=== PATIENT | female | born 1975 | race Caucasian/White ===

== ENCOUNTER 2020-03-05 17:30 | Emergency (ER) | payer OTHER, SELFPAY ==
--- NOTE | 2020-03-05 17:35 | DI.RAD.S_ITS ---
PROCEDURE: XR KNEE LT 3V INDICATIONS: fall w/ twist, lt medial knee pain TECHNIQUE: 3 views of the knee were acquired. COMPARISON: None. FINDINGS: Bones: No fractures or dislocations. No suspicious bony lesions. Soft tissues: No joint effusion. No suspicious soft tissue calcifications. IMPRESSION: No trauma. Dictated by: Jose Hines M.D. on 03/05/2020 at 18:35 Approved by: Jose Hines M.D. on 03/05/2020 at 18:36
[2020-03-05 17:36] VITALS: BP 136/75; PULSE 79; RESP 18; TEMP 36.6; O2SAT 98
--- NOTE | 2020-03-05 18:00 | ED_ITS ---
HPI - Extremity Injury (Lower) <Jhony CumminsBautistaToreyCHRISTINA ortizP - Last Filed: 03/05/20 19:16> General Chief Complaint: Extremity Injury, Lower Stated Complaint: fell on beach/hurt left knee Time Seen by Provider: 03/05/20 17:40 Source: patient Mode of arrival: Ambulatory Limitations: no limitations History of Present Illness HPI Narrative: This is a 44 year female, nonsmoker, who has noncontributing medical history presents to ED with significant other with chief complain of left your knee discomfort and instability. Patient reports she was jumping off dingy and landed on the beach with her knee shifted to medially. She did not feel the pain immediately but when she tried to walk she almost passed out from weird sensation and not from pain. Patient reports had injured knee about 10 years ago from skiing but not sure whether it was the same left knee. Patient had taken ibuprofen 800 mg immediately after the injury and has been using ice pack on affected knee. She reports intact sensation and is able to move toes distally. She states she is able to flex and extend affected leg. Primary care physician at [place]. Review of Systems <Jhony NaifCHRISTINA ortizP - Last Filed: 03/05/20 19:16> Review of Systems Narrative: General: Denies fever, chills, fatigue, malaise, sweats. Respiratory: Denies dyspnea, cough, wheezing, hemoptysis, sputum. Cardiovascular: Denies chest pain, palpitations, orthopnea, edema. Gastrointestinal: Denies nausea, vomiting, abdominal pain, diarrhea, constipation, melena. Musculoskeletal: See HPI Skin: Denies rash, skin lesions, or other. Exam <Jhony CumminsCHRISTINA ArroyoP - Last Filed: 03/05/20 19:16> Narrative Exam Narrative: General appearance: well developed, well nourished, in no acute distress. Head: normocephalic, atraumatic, no scalp lesions, non-tender. ENT: Hearing grossly intact. Nose without bleeding, purulent discharge. Airway patent. Neck/Thyroid: neck supple, full range of motion, no visible masses or meningeal signs. No JVD, non-tender without lymphadenopathy. Skin: no suspicious rashes, lesions over visible areas. Warm and dry and appropriate color for ethnicity. Heart: no clubbing, no cyanosis, no edema. Lungs: Breathing even and unlabored. No stridor. No accessory muscles used. Able to speak in full sentences. Chest: normal shape and expansion. Abdomen: non-obese, non-distended. Neurologic: alert and oriented. 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 Psych: good eye contact, normal affect. Initial Vital Signs Initial Vital Signs: Vital Signs Temperature 97.9 F 03/05/20 17:36 Pulse Rate 79 03/05/20 17:36 Respiratory Rate 18 03/05/20 17:36 Blood Pressure 136/75 03/05/20 17:36 Pulse Oximetry 98 03/05/20 17:36 Extrem Left lower extremity: normal to inspection, knee Details: normal to inspection, tenderness Location: of the medial joint line, normal ROM and knee ligament exam abnormal Details: valgus stress test and varus stress test; no pain with axial loading and Wicho's test not performed; no swelling, no lacerations, no ecchymosis, no crepitus, no deformity and no unusual warmth, lower leg Details: normal to inspection; no tenderness and no localized swelling, ankle Details: normal to inspection; no tenderness and no swelling and foot Details: normal to inspection; no tenderness <Kenton Jimenez DO - Last Filed: 03/05/20 21:34> Initial Vital Signs Initial Vital Signs: Vital Signs Temperature 97.9 F 03/05/20 17:36 Pulse Rate 79 03/05/20 17:36 Respiratory Rate 18 03/05/20 17:36 Blood Pressure 136/75 03/05/20 17:36 Pulse Oximetry 98 03/05/20 17:36 Procedures <LAKESHIA Herrera - Last Filed: 03/05/20 19:16> Orthopedic Splinting/Casting Injury #1: Side: left Lower Extremity Injury Location: knee Lower Extremity Immobilizer: Eric wrap Post splinting neuro exam: intact Post splinting vascular exam: intact Placed by: Nursing Scores <LAKESHIA Herrera Last Filed: 03/05/20 19:16> GCS [place] coma scale eye opening: Spontaneous [place] coma scale verbal response: Orientated Aida coma scale motor response: Obey commands Aida coma scale total score: 15 Course <LAKESHIA Herrera - Last Filed: 03/05/20 19:16> Orders Ordered: ED Orders 03/05/20 17:35 XR knee LT 3V Stat Vital Signs Vital signs: Vital Signs - 8 hr 03/05/20 17:36 Temperature 97.9 F Pulse Rate 79 Respiratory Rate 18 Blood Pressure 136/75 Pulse Oximetry 98 <Kenton Jimenez DO - Last Filed: 03/05/20 21:34> Orders Ordered: ED Orders 03/05/20 17:35 XR knee LT 3V Stat Vital Signs Vital signs: Vital Signs - 8 hr 03/05/20 17:36 Temperature 97.9 F Pulse Rate 79 Respiratory Rate 18 Blood Pressure 136/75 Pulse Oximetry 98 MDM - Extremity Injury (Lower) <LAKESHIA Herrera - Last Filed: 03/05/20 19:16> Differential Diagnosis Differential diagnosis: Likely acute internal derangement of knee and other (knee fracture, knee strain) Medical Records Attestation: I reviewed the patient's medical records. Imaging Data XR-Knee LT: Radiologist's Impression: [address] [address] XRay Report Signed Patient: Ruth Ann Borges EMR#: [id number] : 1975Acct:[id number] Age/Sex: 44 / FDate of Service: 03/05/20 Loc: ED Accession Number: [id number] Procedure: XR knee LT 3V Ordering Provider: Hillary Phipps D.O. PROCEDURE: XR KNEE LT 3V INDICATIONS: fall w/ twist, lt medial knee pain TECHNIQUE: 3 views of the knee were acquired. COMPARISON: None. FINDINGS: Bones: No fractures or dislocations. No suspicious bony lesions. Soft tissues: No joint effusion. No suspicious soft tissue calcifications. IMPRESSION: No trauma. Dictated by: Jose Hines M.D. on 03/05/2020 at 18:35 Approved by: Jose Hines M.D. on 03/05/2020 at 18:36 [facility] Narrative Medical decision making narrative: X-ray test does not show acute fractures or dislocations. Patient was able to ambulate bearing weight with slight limp on affected leg. Physical exam on left knee was unremarkable. Patient reports feels unstable when she walks up or down the stairs and with certain movements. Patient's pain is well managed with cool pack and ibuprofen that she had taken before coming into ED. Eric wrap was applied on affected knee for support and discomfort. Advised to follow up with primary care physician and as needed a referral to orthopedist through [facility] and she verbalized understa nding and agreement with the treatment plan. Discharge Plan Departure Patient Disposition: Home Clinical Impression: Knee strain Qualifiers: Encounter type: initial encounter Laterality: left Qualified Code(s): S86.912A - Strain of unspecified muscle(s) and tendon(s) at lower leg level, left leg, initial encounter Discharge Date/Time: 03/05/20 19:25 Instructions: DI for Knee Pain Activity Restrictions/Additional Instructions: You have been diagnosed with [left knee strain. Fractures or dislocation or joint effusion. Affected knee was supported with Eric wrap.]. What to do: *Take your medications as directed. You can continue to take ibuprofen 400-800 mg 4-3 times a day as needed for pain and inflammation. Use cool pack on affected site for inflammation and swelling. You can also use Tylenol 650-1000 mg up to 3 to times a day as needed for discomfort. *Follow up with your primary care provider in 2-3 days, call for an appointment. Let them know you were seen in the ED and that we asked you to be seen in follow up. *Return to ED if you have any new, worsening, or concerning symptoms, such as [worsening pain, tingling/numbness/weakness to distal leg, chest pain, difficulty breathing, unable to tolerate fluids or any acute concerns]. <Kenton Jimenez DO - Last Filed: 03/05/20 21:34> [facility] ED Attending Katherineature Attestation: I was immediately available in the department for consultation. This documentation has been reviewed and I agree with assessment and plan. Supervised by Kenton Jimenez DO
== END 2020-03-05 19:25 | disposition home or self-care (01) ==
PROVIDERS: Emergency Provider Nurse Practitioner Family
DX: S86.812A Strain of other muscle(s) and tendon(s) at lower leg level, left leg, initial encounter (principal); X50.1XXA Overexertion from prolonged static or awkward postures, initial encounter; Y93.39 Activity, other involving climbing, rappelling and jumping off
CPT/HCPCS: 73562; 99281; 99283